=== PATIENT | female | born 1995 | race Two or more races ===

== ENCOUNTER 2021-11-06 11:56 | Outpatient (CLI) | payer OTHER | END 2021-11-06 13:05 | disposition home or self-care (01) | LOC: PRENATAL 11:56 | PROVIDERS: ATTEND Obstetrics & Gynecology Maternal & Fetal Medicine | DX: O35.0XX0 Maternal care for (suspected) central nervous system malformation in fetus, not applicable or unspecified (principal); O35.3XX0 Maternal care for (suspected) damage to fetus from viral disease in mother, not applicable or unspecified; O34.219 Maternal care for unspecified type scar from previous cesarean delivery; O14.90 Unspecified pre-eclampsia, unspecified trimester; O99.210 Obesity complicating pregnancy, unspecified trimester; Z3A.18 18 weeks gestation of pregnancy ==

== ENCOUNTER 2022-03-25 08:47 | Inpatient (IN) | payer OTHER ==
[~2022-03-25] VITALS: Ht 162.6 cm; Wt 3.2 kg
[~2022-03-25 08:47] MED LIST: ASA81 MG PO; PRENATA CHEWAB1 EACH PO
[2022-04-01] MEDS ORDERED: AMOX-CLAV 875-1 EACH PO (05:54)
== END 2022-03-27 13:30 | disposition home or self-care (01) | DRG 785 ==
LOC: LDR 08:47 → OB/GYN 14:57
PROVIDERS: ADMIT Obstetrics & Gynecology; ATTEND Obstetrics & Gynecology
PROC: 0UB70ZZ Excision of Bilateral Fallopian Tubes, Open Approach (ICD-10-PCS; 2022-03-25)
PROC: 4A1HXCZ Monitoring of Products of Conception, Cardiac Rate, External Approach (ICD-10-PCS; 2022-03-25)
PROC: 10D00Z1 Extraction of Products of Conception, Low, Open Approach (ICD-10-PCS; principal; 2022-03-25 11:00)
DX: O34.211 Maternal care for low transverse scar from previous cesarean delivery (principal); Z30.2 Encounter for sterilization; Z20.822 Contact with and (suspected) exposure to COVID-19; Z3A.38 38 weeks gestation of pregnancy; Z37.0 Single live birth

== ENCOUNTER → 2022-03-31 | Emergency (ER) | payer OTHER ==
[~2022-03-31] VITALS: Ht 162.6 cm; Wt 108.0 kg
[~2022-03-31] MED LIST changes: +AMOX-CLAV 875-1 EACH PO
== END | disposition home or self-care (01) ==
LOC: ER 23:20
DX: T81.89XA Other complications of procedures, not elsewhere classified, initial encounter (principal)